=== PATIENT | male | born 1960 | race Caucasian/White ===

== ENCOUNTER 2017-12-31 22:55 | Observation (INO) | payer OTHER ==
[2017-12-31] MEDS ORDERED: LORazepam 2 MG/ML INJ IVP ONE (23:10)
[2017-12-31] MEDS ORDERED: NS 1,000 ML IV ONE (23:10)
--- NOTE | 2017-12-31 23:20 | CPEKG ---
Heart Rate: 96 RR Interval: 625 P-R Interval: 192 QRSD Interval: 106 QT Interval: 420 QTC Interval: 531 P Seaton: 70 QRS Seaton: 86 T Wave Seaton: 60 EKG Severity - ABNORMAL ECG - EKG Impression: SINUS RHYTHM EKG Impression: PROLONGED QT INTERVAL Electronically Signed By: Chhaya Call 01-Jan-2018 07:44:30
[2017-12-31] MEDS ORDERED: TDAP ADULT 0.5 ML INJ (BOOSTRIX) IM ONE (23:50)
--- NOTE | 2017-12-31 23:50 | EDPHY ---
H & P Stated Complaint: SEIZURE, HIT LEFT HEAD, LAC LEFT ELBOW, VOMIT, POSTICTAL Time Seen by Provider: 12/31/17 23:02 HPI/ROS: HPI The patient presents with concern for seizure which occurred just prior to arrival. 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 He had a witnessed episode of ALOC including tonic clonic activity found face down, foaming at the mouth with gaze deviation. This lasted for several minutes and then resolved. Afterwards the patient was sleepy. He has sustained a hematoma of his left scalp. He is not clear if he has a history of seizure. On review of outside records the patient was admitted to [facility] from December 17 to with a GI bleed with diagnosis of a hiatal hernia with Lyman's esophagus. He does have a history of alcohol use and was started on alcohol withdrawal protocol there. He had elevated liver tests. He is not on any antiepileptic medications. The patient is currently feeling well with no complaints. He is feeling slightly confused he says. REVIEW OF SYSTEMS Constitutional: No fever, no chills. Eyes: No discharge. ENT: No sore throat. Cardiovascular: No chest pain, no palpitations. Respiratory: No cough, no shortness of breath. Gastrointestinal: No abdominal pain, no vomiting. Genitourinary: No hematuria. Musculoskeletal: No back pain. Skin: No rashes. Neurological: No headache. 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 General Appearance: Alert, no distress, occasional diaphoresis Eyes: Pupils equal and round no pallor or injection ENT, Mouth: Mucous membranes moist, there is a right-sided lateral tongue laceration which is superficial Respiratory: There are no retractions, lungs are clear to auscultation Cardiovascular: Regular rate and rhythm Gastrointestinal: Abdomen is soft and non-tender, no masses, bowel sounds normal Neurological: A&O, cranial nerves 2-12 intact, 5/5 strength in upper and lower extremities which is symmetric, no pronator drift, normal finger to nose testing , no tongue wag or hand tremor Skin: Warm and dry, no rashes Musculoskeletal: Neck is supple non tender Extremities: symmetrical, full range of motion Psychiatric: Patient is oriented X 3, there is no agitation Source: Patient, EMS Exam Limitations: Clinical condition - Medical/Surgical History Other PMH: SIEZURES Constitutional: Initial Vital Signs Temperature (C) 36.7 C 12/31/17 22:55 Heart Rate 102 H 12/31/17 22:55 Respiratory Rate 18 12/31/17 22:55 Blood Pressure 128/89 H 12/31/17 22:55 O2 Sat (%) 98 12/31/17 22:55 O2 Delivery Mode Room Air O2 (L/minute) 2 Allergies/Adverse Reactions: No Known Allergies Allergy (Verified 01/01/18 09:56) Home Medications: Medication Instructions Recorded Atorvastatin Calcium [Lipitor 40 40 mg PO DAILY 01/01/18 mg (*)] Clindamycin 1% [Cleocin 1%] 1 milad TP BID 01/01/18 DULoxetine [Cymbalta 30 MG (*)] 60 mg PO DAILY 01/01/18 Doxycycline Hyclate [Vibramycin 100 mg PO BID 01/01/18 100 MG (*)] Herbals/Supplements -Info Only 1 ea PO DAILY 01/01/18 Lisinopril/Hydrochlorothiazide 1 each PO DAILY 01/01/18 [Zestoretic 20-25 mg Tablet] Omeprazole 20 mg PO BID 01/01/18 Tretinoin/Emollient Base 1 milad TP HS 01/01/18 [Tretinoin 0.05% Emollient Crm] Medical Decision Making - Diagnostics Imaging Results: CT head without contrast shows no acute intracranial abnormality, discussed with the radiologist extraction operator. 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 He has sustained a scalp hematoma. He currently does not have any neurologic deficits though is slightly confused. I suspect alcohol withdrawal seizure given concern from previous admission of alcohol use. The patient denies drinking much alcohol. Plan for CT scan of head, basic labs, IV fluids, Ativan as needed. In the emergency department, patient had no ongoing seizures. His mental status improved and he is no longer confused. His arrived in does report that he drinks about 2 alcoholic drinks a day though she has never witnessed any signs of withdrawal. Patient's labs were abnormal with hyponatremia, and elevated creatinine. I wonder if his hyponatremia could have led to a seizure. He does have elevated creatinine is well which is concerning for dehydration as well. I consulted with the [facility] doctor line and spoke with the nurse. Patient's recent creatinine less than a month ago was less than 1. She says that the patient can stay here at [facility] for admission because of his presentation. I have consulted with the hospitalist Dr. Hernandez who will admit the patient. - Data Points Laboratory Results: Laboratory Results 12/31/17 23:50 12/31/17 23:50 Medications Given: Discontinued Medications Acetaminophen (Tylenol) 650 mg PO Q4HRS PRN PRN Reason: Pain, Mild/Fever, Can Take PO Stop: 06/30/18 02:10 Last Admin: 01/01/18 11:46 Dose: 650 mg Hydrocodone Bitart/Acetaminophen (Jefferson 5/325) 1 tab PO EDNOW ONE Stop: 01/01/18 01:12 Last Admin: 01/01/18 01:14 Dose: 1 tab Diphtheria/Tetanus/Acell Pertussis (Boostrix) 0.5 ml IM .ONCE ONE Stop: 12/31/17 23:51 Last Admin: 01/01/18 00:17 Dose: 0.5 ml Duloxetine HCl (Cymbalta) 60 mg PO DAILY RANGEL Stop: 06/30/18 11:14 Last Admin: 01/01/18 11:45 Dose: 60 mg Sodium Chloride (Ns) 1,000 mls @ 0 mls/hr IV EDNOW ONE; Wide Open PRN Reason: Protocol Stop: 12/31/17 23:11 Last Admin: 12/31/17 23:20 Dose: 1,000 mls Sodium Chloride (Ns) 1,000 mls @ 100 mls/hr IV CONT RANGEL Stop: 06/30/18 11:14 Last Admin: 01/01/18 11:36 Dose: 1,000 mls Magnesium Sulfate (Magnesium Sulf 2 Gm (Premix)) 50 mls @ 50 mls/hr IV ONCE ONE Stop: 01/01/18 12:15 Last Admin: 01/01/18 11:34 Dose: 50 mls Lorazepam (Ativan Injection) 1 mg IVP EDNOW ONE Stop: 12/31/17 23:11 Last Admin: 12/31/17 23:31 Dose: 1 mg Potassium Chloride (Potassium Chloride Oral Liquid) 20 meq PO ONCE ONE Stop: 01/01/18 11:18 Last Admin: 01/01/18 11:34 Dose: 20 meq Departure - Departure Dis[facility]: [facility] Acute Clinical Impression: Seizure, Acute renal failure, Hyponatremia Condition: Good
[2017-12-31 23:58] LABS: PLATELET COUNT 208 10^3/uL (150-400)
[2018-01-01] MEDS ORDERED: HYDROCODONE/APAP 5/325 TAB PO ONE (01:11)
[2018-01-01] MEDS ORDERED: ACETAMINOPHEN 325 MG TAB PO PRN (02:11)
[2018-01-01] MEDS ORDERED: ONDANSETRON 4 MG/2 ML VIAL IVP PRN (02:11)
[2018-01-01] MEDS ORDERED: ONDANSETRON DISINTEGRATING 4 MG TAB PO PRN (02:11)
--- NOTE | 2018-01-01 02:55 | PDGENHP ---
History and Physical - Chief Complaint Seizure - History of Present Illness 57 yo M w/ hx of HTN, HLD, and recent UGIB presents after a seizure. 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 He left his post to go get a drink of water and then does not recall what happened. His colleagues were alerted of the seizure and brought him in to the ED. He has been observed in the ED for 3 hours without further seizure activity. He tells me he was spent a lot of time outside over the last 3 days. It has been very hot and he tends to sweat profusely. He has tried to drink 60 oz of water daily to deal with this. Lab work-up in the ED notable for hyponatremia and TENZIN. Patient is being admitted for treatment of this. Case discussed with ED physician Dr. Call; no previous records available for review as patient usually visits [facility]. History Information - Allergies/Home Medication List Allergies/Adverse Reactions: No Known Allergies Allergy (Unverified 12/31/17 23:24) Home Medications: Atorvastatin Calcium 01/01/18 [Last Taken Unknown] Clindamycin 1% 01/01/18 [Last Taken Unknown] DULoxetine 01/01/18 [Last Taken Unknown] Doxycycline Hyclate 01/01/18 [Last Taken Unknown] Lisinopril/Hydrochlorothiazide 01/01/18 [Last Taken Unknown] Omeprazole 01/01/18 [Last Taken Unknown] RETIN-A 01/01/18 [Last Taken Unknown] Thiamine HCl 01/01/18 [Last Taken Unknown] I have personally reviewed and updated: family history, medical history - Past Medical History hypertension, hyperlipidemia Additional medical history: UGIB 2 weeks ago 2/2 esophagitis - Surgical History Reports: no pertinent surgical hx - Family History Additional family history: Denies family hx of seizures Review of Systems Review of Systems: ROS: 10pt was reviewed & negative except for what was stated in HPI & below Physical Exam Physical Exam: Temp Pulse Resp BP Pulse Ox 36.7 C 95 18 106/63 98 12/31/17 22:55 12/31/17 23:23 12/31/17 23:23 12/31/17 23:23 12/31/17 23:59 Constitutional: no apparent distress, not in pain Eyes: PERRL, EOMI Ears, Nose, Mouth, Throat: moist mucous membranes, no oral mucosal ulcers Cardiovascular: regular rate and rhythym, no murmur, rub, or gallop Respiratory: no respiratory distress, no rales or rhonchi Gastrointestinal: normoactive bowel sounds, soft, non-tender abdomen Skin: warm, normal color Musculoskeletal: full muscle strength, no muscle tenderness Neurologic: AAOx3, CN II-XII Intact Psychiatric: interacting appropriately, not anxious Lab Data & Imaging Review 12/31/17 23:50 12/31/17 23:50 WBC 13.81 10^3/uL (3.80-9.50) H 12/31/17 23:50 RBC 3.84 10^6/uL (4.40-6.38) L 12/31/17 23:50 Hgb 12.5 g/dL (13.7-17.5) L 12/31/17 23:50 Hct 36.0 % (40.0-51.0) L 12/31/17 23:50 MCV 93.8 fL (81.5-99.8) 12/31/17 23:50 MCH 32.6 pg (27.9-34.1) 12/31/17 23:50 MCHC 34.7 g/dL (32.4-36.7) 12/31/17 23:50 RDW 13.4 % (11.5-15.2) 12/31/17 23:50 Plt Count 208 10^3/uL (150-400) 12/31/17 23:50 MPV 8.8 fL (8.7-11.7) 12/31/17 23:50 Neut % (Auto) 90.3 % (39.3-74.2) H 12/31/17 23:50 Lymph % (Auto) 2.1 % (15.0-45.0) L 12/31/17 23:50 Kent % (Auto) 5.8 % (4.5-13.0) 12/31/17 23:50 Eos % (Auto) 0.1 % (0.6-7.6) L 12/31/17 23:50 Baso % (Auto) 0.1 % (0.3-1.7) L 12/31/17 23:50 Nucleat RBC Rel Count 0.0 % (0.0-0.2) 12/31/17 23:50 Absolute Neuts (auto) 12.47 10^3/uL (1.70-6.50) H 12/31/17 23:50 Absolute Lymphs (auto) 0.29 10^3/uL (1.00-3.00) L 12/31/17 23:50 Absolute Monos (auto) 0.80 10^3/uL (0.30-0.80) 12/31/17 23:50 Absolute Eos (auto) 0.01 10^3/uL (0.03-0.40) L 12/31/17 23:50 Absolute Basos (auto) 0.01 10^3/uL (0.02-0.10) L 12/31/17 23:50 Absolute Nucleated RBC 0.00 10^3/uL (0-0.01) 12/31/17 23:50 Immature Gran % 1.6 % (0.0-1.1) H 12/31/17 23:50 Immature Gran # 0.22 10^3/uL (0.00-0.10) H 12/31/17 23:50 RBC/WBC/PLT Morphology TNP 12/31/17 23:50 Platelet Estimate TNP 12/31/17 23:50 Sodium 125 mEq/L (135-145) L 12/31/17 23:50 Potassium 3.5 mEq/L (3.3-5.0) 12/31/17 23:50 Chloride 85 mEq/L (97-110) L 12/31/17 23:50 Carbon Dioxide 18 mEq/l (22-31) L 12/31/17 23:50 Anion Gap 22 mEq/L (8-16) H 12/31/17 23:50 BUN 20 mg/dL (7-23) 12/31/17 23:50 Creatinine 2.4 mg/dL (0.7-1.3) H 12/31/17 23:50 Estimated GFR 28 12/31/17 23:50 Glucose 176 mg/dL (70-100) H 12/31/17 23:50 Calcium 9.3 mg/dL (8.5-10.4) 12/31/17 23:50 Total Bilirubin 1.6 mg/dL (0.1-1.4) H 07/04/18 23:50 AST 103 IU/L (17-59) H 12/31/17 23:50 ALT 53 IU/L (21-72) 12/31/17 23:50 Alkaline Phosphatase 75 IU/L (38-126) 12/31/17 23:50 Total Protein 7.0 g/dL (6.3-8.2) 12/31/17 23:50 Albumin 4.5 g/dL (3.5-5.0) 12/31/17 23:50 Ethyl Alcohol < 10 mg/dL (0-10) 12/31/17 23:50 Imaging Review: CTH prelim: Signs and Symptoms: ^seizure, hematoma Technique: Contiguous 5mm axial images from foramen magnum to vertex without intravenous contrast. Findings: Attenuation of the brain parenchyma appears normal, with no evidence for hemorrhage, mass, or midline shift. LT scalp hematoma. The sulci and ventricles are normal in size and configuration for age. Fluid in LT maxillary sinus Called to ER @ 1235 hrs Visualized and Interpreted EKG results: Yes EKG Interpretation: Positive for: normal sinsus rhythm, other (QTc 531) Assessment & Plan Assessment: 57 yo M w/ hx of HTN and HLD presents with seizure likely from hyponatremia. Plan: 1. Seizure - First time seizure; most likely etiology is hyponatremia. Patient denies any personal or family history of seizures. CTH on admission without acute findings. - Admit for observation, no antiepileptics currently unless seizure recurs - Seizure precautions - Will have neurology see patient 2. Acute symptomatic hyponatremia - Serum Na 125 on admission. Patient describes profuse sweating over the last few days and intake of 60 oz of free water daily. In addition he takes HCTZ daily for blood pressure, which also likely contributed. - S/p 1 L NS in the ED - Will obtain UA, urine lytes, and urine/serum Osms - Recheck BMP at 0600(in 3 hours), no further fluids for now 3. TENZIN - Serum Cr. 2.4 on admission; clinical picture consistent with pre-renal azotemia. Patient reports normal renal function at baseline. - UA, FeNa, FeUrea (on HCTZ daily) - S/p 1 L NS, monitor BMP - Avoid nephrotoxic agents, renally dose medications 4. HTN - On lisinopril and HCTZ as outpatient. Will hold both noting TENZIN and hyponatremia. 5. HLD - Continue statin 6. ETOH use - Patient drinks 2 beers daily, he denies any prior hx of ETOH w/d. Will not order CIWA now, monitor for s/s of withdrawal and start if indicated. 7. Hx UGIB - Admitted at [facility] 2 weeks ago for UGIB 2/2 esophagitis. - Continue PPI Diet - Regular Code - Full Ppx - SCDs noting recent GIB Dispo - Admit under observation status
[2018-01-01 05:50] LABS: PLATELET COUNT 157 10^3/uL (150-400)
[2018-01-01] MEDS ORDERED: DULoxetine 30 MG CAP PO SCH (11:15)
[2018-01-01] MEDS ORDERED: MAGNESIUM SULF 2 GM/WATER 50 ML IV ONE (11:16)
[2018-01-01] MEDS ORDERED: POTASSIUM CL 20 MEQ/15 ML UDCUP PO ONE (11:17)
[2018-01-01] MEDS: NS 1,000 ML IV SCH ×2 (11:34→11:36)
[2018-01-01 13:09] VITALS: BP 122/78
--- NOTE | 2018-01-01 13:38 | GCON ---
[f rep st] CONSULTATION NEUROLOGY CONSULT DATE OF CONSULTATION: 01/01/2018 CHIEF COMPLAINT: Single seizure. 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 The patient had brought copious amounts of water and consume maybe 1 or 2 gallons per day according to the patient. Then yesterday, he started feeling ill and lightheaded. He got out of his truck and had a witnessed convulsion by his colleagues. There was no tongue biting or incontinence. He is amnestic for the episode. He was a bit confused afterwards. He was brought to our emergency department and found to have a sodium of 125 and then 123. He has had multiple other lab abnormalities. No alcohol in his blood. Head CT was done and negative. He has had no further seizures. REVIEW OF SYSTEMS: Review of symptomsdone and only pertinent to HPI. This was a 10-point review. PAST MEDICAL/SOCIAL/FAMILY HISTORY/ALLERGIES/HOME MEDICATIONS: See Dr. Hernandez's H and P. PHYSICAL EXAMINATION: VITAL SIGNS: 135/76, temperature 36.8, respiration rate 18. GENERAL: The patient is very pleasant in no distress. He is awake and alert. NEUROLOGIC: No aphasia. Cranial nerve exam normal 2 through 7. Motor exam normal strength and tone throughout. Sensory exam normal to light touch. Coordination normal upper lower extremities. IMPRESSION/PLAN: 1. Single seizure, likely provoked. 2. Hyponatremia. Overall, the patient's clinical history is consistent with a provoked generalized seizure from hyponatremia. The patient may have overhydrated without replacing electrolytes over the last several days culminating in this event and the electrolyte derangement. He was counseled at great length. He will be on 90 days of driving restrictions and seizure precautions. He is agreeable. The patient is a [facility] patient and will be transferred to their facility in the next hour or so according to the medical team. Therefore, I would recommend the [facility] perform MRI brain without contrast and EEG to complete the seizure workup and exclude any potentially epileptogenic abnormalities. He is agreeable. He will follow up with Neurology at [facility] and has agreed to 90 days of driving restrictions and seizure precautions. We will sign off as he will be transferring shortly and follow up as needed. Please do not hesitate to call with any questions or changes in neurologic status with this very pleasant patient. seventy total minutes of floor time reviewing hospital records, neuro imaging, directly interviewing the patient and coordination of care. /[id number]/MODL MTDD
[2018-01-02] MEDS ORDERED: PANTOPRAZOLE SODIUM 40 MG TAB PO SCH (09:00)
[2018-01-02] MEDS ORDERED: ATORVASTATIN CALCIUM 40 MG TAB PO SCH (09:00)
== END 2018-01-01 13:45 | disposition short-term general hospital (02) ==
LOC: F3N 01-01 03:05
PROVIDERS: ADMIT Student in an Organized Health Care Education/Training Program; ATTEND Family Medicine
DX: R56.9 Unspecified convulsions (principal); E87.1 Hypo-osmolality and hyponatremia; N17.9 Acute kidney failure, unspecified; S00.03XA Contusion of scalp, initial encounter; W19.XXXA Unspecified fall, initial encounter; Y99.0 Civilian activity done for income or pay; Y92.321 Football field as the place of occurrence of the external cause; K20.9 Esophagitis, unspecified; I10 Essential (primary) hypertension; E78.5 Hyperlipidemia, unspecified; Z87.19 Personal history of other diseases of the digestive system; Z23 Encounter for immunization
CPT/HCPCS: 70450; 90471; 93005; 96361; 96374; 99285; G0378; G0480; J2060; J3475